=== PATIENT | male | born 1985 | race Caucasian/White ===

== ENCOUNTER 2020-03-24 13:26 | Emergency (ER) | payer MEDICAID | END 2020-03-24 14:15 | disposition left against medical advice (07) | LOC: ER 13:27 | DX: Z02.89 Encounter for other administrative examinations (principal); Z53.21 Procedure and treatment not carried out due to patient leaving prior to being seen by health care provider ==

== ENCOUNTER → 2020-03-24 | Emergency (ER) | payer MEDICAID ==
[~2020-03-24] VITALS: Ht 165.1 cm; Wt 63.0 kg
[~2020-03-24] MED LIST: SULF1TAB49 PO
[2020-03-24 11:38] VITALS: BP 110/81
--- NOTE | 2020-03-24 11:41 | NUR ---
(PT'S MOTHER'S) FLACO KEY: [phone] CALL IF YOU NEED CLARIFICATION
== END | disposition home or self-care (01) ==
LOC: ER 11:25
DX: H66.42 Suppurative otitis media, unspecified, left ear (principal)
CPT/HCPCS: 99283

== ENCOUNTER 2021-10-09 03:37 | Emergency (ER) | payer MEDICAID ==
[~2021-10-09] VITALS: Ht 165.1 cm; Wt 63.6 kg
[2021-10-09 03:49] VITALS: BP 126/87
== END 2021-10-09 17:25 | disposition left against medical advice (07) ==
LOC: ER 03:38
DX: H92.03 Otalgia, bilateral (principal); Z53.21 Procedure and treatment not carried out due to patient leaving prior to being seen by health care provider

== ENCOUNTER 2022-01-12 01:01 | Emergency (ER) | payer MEDICAID | END 2022-01-12 01:38 | disposition left against medical advice (07) | LOC: ER 01:02 | DX: M79.601 Pain in right arm (principal); Z53.21 Procedure and treatment not carried out due to patient leaving prior to being seen by health care provider ==

== ENCOUNTER 2022-08-14 12:18 | Emergency (ER) | payer MEDICAID | END 2022-08-14 14:16 | disposition left against medical advice (07) | LOC: ER 12:18 | DX: Z00.8 Encounter for other general examination (principal); Z53.21 Procedure and treatment not carried out due to patient leaving prior to being seen by health care provider ==

== ENCOUNTER 2022-08-19 13:02 | Emergency (ER) | payer MEDICAID ==
[~2022-08-19] VITALS: Ht 167.6 cm; Wt 74.2 kg
[2022-08-19 13:12] VITALS: BP 129/78
== END 2022-08-19 15:00 | disposition left against medical advice (07) ==
LOC: ER 13:02
DX: R51.9 Headache, unspecified (principal); Z53.21 Procedure and treatment not carried out due to patient leaving prior to being seen by health care provider
CPT/HCPCS: 99281

== ENCOUNTER 2022-12-17 03:01 | Emergency (ER) | payer MEDICAID | END 2022-12-17 03:58 | disposition left against medical advice (07) | LOC: ER 03:01 | DX: K59.00 Constipation, unspecified (principal); R10.9 Unspecified abdominal pain; R33.9 Retention of urine, unspecified; Z53.21 Procedure and treatment not carried out due to patient leaving prior to being seen by health care provider ==

== ENCOUNTER 2022-12-29 10:53 | Emergency (ER) | payer OTHER, MEDICAID | END 2022-12-29 11:13 | disposition left against medical advice (07) | LOC: ER 10:54 | DX: Z00.8 Encounter for other general examination (principal); Z53.21 Procedure and treatment not carried out due to patient leaving prior to being seen by health care provider ==

== ENCOUNTER 2023-01-01 08:31 | Emergency (ER) | payer MEDICAID, OTHER ==
--- NOTE | 2023-01-01 10:08 | NUR ---
RN CK LOBBY AND PT HAS NOT RETURNED. PER SECURITY PT LEFT AROUND 1 HOUR AGO. EDUCATIONAL DIRECTOR NOTIFIED.
== END 2023-01-01 10:17 | disposition left against medical advice (07) ==
LOC: ER 08:31
DX: Z75.9 Unspecified problem related to medical facilities and other health care (principal); Z53.21 Procedure and treatment not carried out due to patient leaving prior to being seen by health care provider

== ENCOUNTER 2023-07-08 15:22 | Emergency (ER) | payer MEDICAID ==
[~2023-07-08] VITALS: Ht 162.6 cm; Wt 69.1 kg
[2023-07-08 15:24] VITALS: BP 140/83; PULSE 88; RESP 16; TEMP 98.6; O2SAT 94
== END 2023-07-08 16:59 | disposition left against medical advice (07) ==
LOC: ER 15:24
DX: S61.212A Laceration without foreign body of right middle finger without damage to nail, initial encounter (principal); Z53.21 Procedure and treatment not carried out due to patient leaving prior to being seen by health care provider; W45.8XXA Other foreign body or object entering through skin, initial encounter; Y93.89 Activity, other specified; Y92.89 Other specified places as the place of occurrence of the external cause; Y99.8 Other external cause status
CPT/HCPCS: 99281

== ENCOUNTER 2023-09-08 11:10 | Emergency (ER) | payer MEDICAID | END 2023-09-08 11:37 | disposition left against medical advice (07) | LOC: ER 11:11 | DX: A64 Unspecified sexually transmitted disease (principal); Z53.21 Procedure and treatment not carried out due to patient leaving prior to being seen by health care provider ==

== ENCOUNTER 2023-10-27 04:09 | Emergency (ER) | payer MEDICAID | END 2023-10-27 04:15 | disposition left against medical advice (07) | LOC: ER 04:10 | DX: R10.9 Unspecified abdominal pain (principal); Z53.21 Procedure and treatment not carried out due to patient leaving prior to being seen by health care provider ==

== ENCOUNTER 2023-11-01 21:46 | Emergency (ER) | payer MEDICAID ==
[~2023-11-01] VITALS: Ht 165.1 cm; Wt 63.0 kg
[2023-11-01 21:51] VITALS: BP 133/86; PULSE 75; RESP 16; TEMP 97.7; O2SAT 98
== END 2023-11-01 22:13 | disposition left against medical advice (07) ==
LOC: ER 21:47
DX: M79.672 Pain in left foot (principal); Z53.21 Procedure and treatment not carried out due to patient leaving prior to being seen by health care provider

== ENCOUNTER 2023-11-05 15:41 | Emergency (ER) | payer MEDICAID ==
[~2023-11-05] VITALS: Ht 165.1 cm; Wt 74.5 kg
[2023-11-05 15:46] VITALS: BP 116/77; PULSE 89; RESP 16; TEMP 98.3; O2SAT 97
== END 2023-11-05 17:07 | disposition home or self-care (01) ==
LOC: ER 15:42
DX: I83.92 Asymptomatic varicose veins of left lower extremity (principal); Z59.00 Homelessness unspecified
CPT/HCPCS: 93971; 99284

== ENCOUNTER 2023-11-08 22:06 | Emergency (ER) | payer MEDICAID ==
[~2023-11-08] VITALS: Ht 167.6 cm; Wt 75.0 kg
[2023-11-08 23:03] LABS: BASOPHILS # (AUTO) 0.1 X10'3 (0-0.2); BASOPHILS % (AUTO) 1.7 % (0-1); EOSINOPHILS # (AUTO) 0.2 X10'3 (0-0.9); HEMATOCRIT 41.8 % (42.0-52.0); HEMOGLOBIN 14.2 g/dl (14.0-17.9); LYMPHOCYTES # (AUTO) 1.7 X10'3 (1.1-4.8); MEAN CORPUSCULAR HEMOGLOBIN 31.3 PG (27.0-31.0); MEAN CORPUSCULAR HGB CONC 34.1 g/dL (33.0-36.5); MEAN CORPUSCULAR VOLUME 91.8 FL (78-98); MEAN PLATELET VOLUME 6.9 FL (7.4-10.4); MONOCYTES # (AUTO) 0.5 X10'3 (0-0.9); MONOCYTES % (AUTO) 7.9 % (2-12); NEUTROPHILS # (AUTO) 3.9 X10'3 (1.8-7.7); NEUTROPHILS % (AUTO) 60.4 % (42-75); PLATELET COUNT 255 X10'3 (140-440); RED BLOOD COUNT 4.56 X10'6 (4.70-6.10); RED CELL DISTRIBUTION WIDTH 13.9 % (11.5-14.5); WHITE BLOOD COUNT 6.5 X10'3 (4.5-11.0)
[2023-11-08 23:14] LABS: ALANINE AMINOTRANSFERASE 66 U/L (12-78); ALBUMIN 3.5 G/DL (3.4-5.0); ALKALINE PHOSPHATASE 64 IU/L (46-116); ANION GAP 9 (8-16); ASPARTATE AMINO TRANSFERASE 42 U/L (10-37); BILIRUBIN,TOTAL 0.2 MG/DL (0.1-1.0); BLOOD UREA NITROGEN 13 MG/DL (7-18); BUN/CREATININE RATIO 12.5 (10.0-20.0); CALCIUM 10.1 MG/DL (8.5-10.1); CHLORIDE 103 MMOL/L (99-107); CREATININE 1.04 MG/DL (0.60-1.10); GLUCOSE 143 MG/DL (70-104); LIPASE 43 U/L (16-77); POTASSIUM 4.2 MMOL/L (3.5-5.1); SODIUM 142 MMOL/L (135-145); TOTAL CARBON DIOXIDE 29.6 MMOL/L (24-32); TOTAL PROTEIN 7.1 G/DL (6.4-8.2); eCRCL 89 ML/MIN; eGFR 81 ML/MIN
[2023-11-09 01:05] VITALS: BP 105/68; PULSE 79; RESP 16; TEMP 98.5; O2SAT 98
== END 2023-11-09 01:36 | disposition left against medical advice (07) ==
LOC: ER 22:06
DX: R10.9 Unspecified abdominal pain (principal); R39.198 Other difficulties with micturition; Z53.21 Procedure and treatment not carried out due to patient leaving prior to being seen by health care provider
CPT/HCPCS: 36415; 80053; 83690; 85025

== ENCOUNTER 2023-11-13 01:05 | Emergency (ER) | payer MEDICAID | END 2023-11-13 01:43 | disposition left against medical advice (07) | LOC: ER 01:06 | DX: R69 Illness, unspecified (principal); Z53.21 Procedure and treatment not carried out due to patient leaving prior to being seen by health care provider ==

== ENCOUNTER 2024-02-10 18:24 | Emergency (ER) | payer MEDICAID ==
[~2024-02-10] VITALS: Ht 157.5 cm; Wt 63.6 kg
[2024-02-10 18:25] VITALS: BP 130/76; PULSE 72; RESP 16; O2SAT 95
== END 2024-02-10 19:35 | disposition left against medical advice (07) ==
LOC: ER 18:24
DX: R42 Dizziness and giddiness (principal); R11.10 Vomiting, unspecified; Z53.21 Procedure and treatment not carried out due to patient leaving prior to being seen by health care provider